=== PATIENT | female | born 1940 | race Caucasian/White ===

== ENCOUNTER → 2018-05-16 | Day surgery (SDC) | payer OTHER ==
--- NOTE | 2018-05-18 10:27 | PATH ---
Surgical Pathology Report Patient Name: GONZÁLEZ DANG [facility]. Rec. #: [id number] /Age/Gender: 1940 (Age: 77) / F Account: [id number] Location: RADIOLOGY ULTRA Taken: 05/16/2018 Received: 05/16/2018 Reported: 05/18/2018 Physicians: Minnie Reno M.D. Specimen(s) Received LEFT BREAST 10:00 MASS US-GUIDED CORE BIOPSY Clinical History Nonpalpable lesion Mammographic findings/ultrasound findings: Suspicious 0.9 cm irregular mass left breast Final Diagnosis Breast, left, 10:00, mass, US-guided core biopsy: Invasive ductal carcinoma, well differentiated with associated calcifications, measuring 6 mm in greatest dimension In this material. (See note). Focal ductal carcinoma in situ (DCIS.), Solid and cribriform type, low nuclear grade. Note: The carcinoma shows strong membranous positivity for E-Cadherin (performed at [facility]), which supports ductal phenotype. Results of ER and WA studies performed at [facility] are as follows: ER (clone [id number] mouse monoclonal antibody by [employer]): > 95 % nuclear staining with strong intensity (Positive). WA (clone16 mouse monoclonal antibody by [employer]): ~90 % nuclear staining with strong intensity (Positive). Results of Her2 IHC & Ki67 studies will be reported separately in an addendum. Case discussed with Dr.Grace Carpenter on 05/18/18. Positive and negative controls (internal if applicable) show appropriate results. Formalin fixation and cold ischemic times are within current ASCO/CAP recommendations for ER, WA and Her2 testing. Electronically Signed Magda Diaz M.D. Addendum Reported: 05/18/2018 Addendum Diagnosis Results of Her2 (IHC) & Ki-67 studies performed at [place], [place] ([id number]) are as follows: Her2 IHC (EP3 from [employer], formerly known as [id number], using [employer] Polymer Refine detection kit):0 (Negative). Ki-67: < 5% (low proliferative index). Positive and negative controls (internal if applicable) show appropriate results. Magda Diaz M.D. Gross Description Received in formalin labeled "left breast 10:00 mass core biopsy," are 4 lentz-yellow, cylindrical portions of fibroadipose tissue ranging from 1.0-1.5 cm in length and averaging 0.1 cm in diameter. The specimens are submitted in toto in one cassette. Time to formalin fixation: < 1 minute Total formalin fixation time: Approximately 7 hours 05/16/201805/16/2018
== END | disposition home or self-care (01) ==
LOC: JMAMMO-SUR 08:43
PROVIDERS: ATTEND Internal Medicine
PROC: 0HBU3ZX Excision of Left Breast, Percutaneous Approach, Diagnostic (ICD-10-PCS; principal; 2018-05-16)
DX: C50.912 Malignant neoplasm of unspecified site of left female breast (principal)
CPT/HCPCS: 19083; 77065-TC; 87899; 88305-TC; 88342-TC

== ENCOUNTER 2021-01-29 21:22 | Emergency (ER) | payer OTHER ==
[2021-01-29 21:34] VITALS: TEMP 98.3; BMI 28.3
[2021-01-29] MEDS ORDERED: methylPREDNISolone NA SUCC 125 MG/2 ML VIAL IVPB ONE (21:50)
[2021-01-29] MEDS ORDERED: FAMOTIDINE 20 MG/50 ML IVPB 20 MG/50 ML MG IVPB ONE ×2 (21:51→22:02)
[2021-01-29] MEDS ORDERED: methylPREDNISolone NA SUCC 125 MG/2 ML VIAL ONE (22:01)
[2021-01-29 22:42] LABS: BASO % 0.3 % (0-2.0); HEMATOCRIT 38.2 % (32.4-45.2); HEMOGLOBIN 13.2 GM/dL (10.7-15.3); LYMPH % 30.3 % (8-40); MCH 31.1 pg (25.7-33.7); MCHC 34.5 g/dl (32.0-36.0); MEAN CELL VOLUME 90.4 fl (80-96); MEAN PLT VOLUME 9.9 fl (7.5-11.1); MONO % 6.5 % (3.8-10.2); NEUT % 61.9 % (42.8-82.8); PLATELET COUNT 209 10^3/uL (134-434); RBC 4.23 M/mm3 (3.60-5.2); RDW 13.6 % (11.6-15.6); WHITE BLOOD COUNT 10.7 K/mm3 (4.0-10.0)
[2021-01-29 23:10] LABS: CALCIUM 10.1 mg/dL (8.5-10.1)
[2021-01-29 23:11] LABS: ALBUMIN 4.4 g/dl (3.4-5.0); BLOOD UREA NITROGEN 16.8 mg/dL (7-18)
[2021-01-29 23:14] LABS: CREATININE 0.7 mg/dL (0.55-1.3)
[2021-01-29 23:16] LABS: BILIRUBIN,TOTAL 0.5 mg/dL (0.2-1); TOT PROT 8.5 g/dl (6.4-8.2)
[2021-01-29 23:23] VITALS: BP 172/74; PULSE 71
== END 2021-01-30 00:04 | disposition home or self-care (01) ==
LOC: JER 21:22
PROC: 3E033NZ Introduction of Analgesics, Hypnotics, Sedatives into Peripheral Vein, Percutaneous Approach (ICD-10-PCS; principal; 2021-01-29)
PROC: 3E033GC Introduction of Other Therapeutic Substance into Peripheral Vein, Percutaneous Approach (ICD-10-PCS; 2021-01-29)
PROC: 3E033GC Introduction of Other Therapeutic Substance into Peripheral Vein, Percutaneous Approach (ICD-10-PCS; 2021-01-29)
DX: T78.40XA Allergy, unspecified, initial encounter (principal)
CPT/HCPCS: 36415; 80053; 85025; 99284-25; C9803; U0003; U0005